=== PATIENT | female | born 1995 | race Caucasian/White ===

== ENCOUNTER 2016-08-06 21:32 | Emergency (ER) | payer OTHER ==
--- NOTE | 2016-08-06 23:39 | DIAGNOSTIC IMAGING REPORT ---
PROCEDURE: CTA THORAX WITH CONTRAST INDICATION: SOB, LONG CAR RIDE, TECHNIQUE: 68 ml of Isovue 370 was injected intravenously and axial images were obtained of the entire thorax with 3D sagittal and coronal MIP reconstructions. COMPARISON: None. FINDINGS: Allowing for suboptimal opacification of the peripheral vessels, no large central emboli are identified (although subtle peripheral emboli may be difficult to exclude). Lungs are clear. Heart and mediastinum are normal. Thorax is normal. IMPRESSION: 1. CT pulmonary arteriogram is partially limited due to suboptimal opacification of peripheral vessels. Allowing for this, no large central emboli are identified, although subtle peripheral emboli may be difficult to exclude. 2. Otherwise negative CT arteriogram. 3. Findings discussed Dr. Brayan Doe. All CT scans at this facility use dose modulation, iterative reconstruction, and/or weight-based dosing when appropriate to reduce radiation dose to as low as reasonably achievable.
--- NOTE | 2016-08-07 02:24 | ED CLINICAL REPORT ---
Clinical Report - Physicians/Mid Levels [facility] [address] [place] [address] 08/06/2016 21:33 Patient: JOANNE DUTTA Time Seen: 2225. Arrived- By private vehicle. Historian- patient. HISTORY OF PRESENT ILLNESS Chief Complaint: DYSPNEA. This started past day or two and is still present (staying the same). It was abrupt in onset and has been constant but is not gone now. The dyspnea is described as moderate and is worsened by exertion and is improved by rest. No cough, sputum production, chest pain or discomfort or calf pain. No foot swelling. (Reports she is approximately 18 weeks . No history of DVT PE or bleeding problems personally or in the family. reports no leg swelling, hemoptysis,recent trauma or surgery. Patient had recent car ride from [place].). Similar symptoms previously: None. Recent medical care: Not recently seen/assessed. REVIEW OF SYSTEMS No abdominal pain, diarrhea, black stools, bloody stools or headache. Currently . All systems otherwise negative, except as recorded above. PAST HISTORY See nurses notes. Medications: None. Allergies: No Known Drug Allergy. SOCIAL HISTORY Never smoker. No alcohol use or drug use. Recent travel. Is an out of state resident. ADDITIONAL NOTES The nursing notes have been reviewed. PHYSICAL EXAM Vital Signs: 08/06/2016 22:21 BP: 144/97. HR: 101. RR: 20. O2 saturation: 100%. Temp: 98.7 F. Blood pressure normal. Oxygen saturation normal. Appearance: Alert. No acute distress. Eyes: Pupils equal, round and reactive to light. Eyes normal inspection. ENT: Ears normal. Nose normal. Pharynx normal. Uvula midline. Neck: Normal inspection. No jugular venous distention. Neck supple. CVS: Normal heart rate and rhythm. Heart sounds normal. Pulses normal. Respiratory: No respiratory distress. Breath sounds normal. Abdomen: Soft and nontender. (Gravid uterus with the fundus palpated just below the umbilicus). Back: Normal inspection. Skin: Skin warm and dry. Normal skin color. No rash. Normal skin turgor. Extremities: Extremities exhibit normal ROM. No lower extremity edema. LABS, X-RAYS, AND EKG Chest CT: (PROCEDURE: CTA THORAX WITH CONTRAST INDICATION: SOB, LONG CAR RIDE, TECHNIQUE: 68 ml of Isovue 370 was injected intravenously and axial images were obtained of the entire thorax with 3D sagittal and coronal MIP reconstructions. COMPARISON: None. FINDINGS: Allowing for suboptimal opacification of the peripheral vessels, no large central emboli are identified (although subtle peripheral emboli may be difficult to exclude). Lungs are clear. Heart and mediastinum are normal. Thorax is normal. IMPRESSION: 1. CT pulmonary arteriogram is partially limited due to suboptimal opacification of peripheral vessels. Allowing for this, no large central emboli are identified, although subtle peripheral emboli may be difficult to exclude. 2. Otherwise negative CT arteriogram.). Chest CT performed with contrast. The study was independently viewed by me and interpreted by the radiologist. The study was discussed with the radiologist (via phone and pacs). Lower Extremity Sonography: Negative exam. No compression abnormality noted. No evidence of DVT bilaterally. The exam was performed by a environmental field technician. The study was independently viewed by me and interpreted by the radiologist. The study was discussed with the radiologist (via pacs). Laboratory Tests: Troponin-I: (ASHLEY: 08/07/2016 00:01) ( [facility] [place] 08/07/2016 02:21) Final results Test Result Flag Units (Reference) TROPONIN I <0.05 L ng/mL (0.00-1.5) TROPONIN REFERENCE RANGE:<0.1 NEGATIVE0.1-1.5 INDETERMINANT>1.5 POSITIVE UA-Culture if indicated: (ASHLEY: 08/06/2016 22:50) ( [facility] [place] 08/06/2016 23:10) Final results Test Result Flag Units (Reference) URINE COLOR YELLOW URINE APPEARANCE CLEAR URINE GLUCOSE NEGATIVE (NEGATIVE) URINE BILIRUBIN NEGATIVE (NEGATIVE) URINE KETONE NEGATIVE (NEGATIVE) URINE SPECIFIC GRAVITY >= 1.030 (1.010-1.030) URINE PH 6.0 (5.0-8.0) URINE PROTEIN NEGATIVE (NEGATIVE) URINE UROBILINOGEN 0.2 EU/dL (0.2-1.0) URINE NITRITE NEGATIVE (NEGATIVE) URINE BLOOD NEGATIVE (NEGATIVE) URINE LEUK ESTERASE NEGATIVE (NEGATIVE) URINE RBC NONE SEEN rbc/hpf (0-1) URINE WBC 15-25 wbc/hpf (0-1) URINE EPITHELIAL CELLS >15 EPI/hpf (0-5) URINE BACTERIA MODERATE (2+ TO 3+) (NONE SEEN) 2+ URINE COMMENT CULTURE INDICATED EPITHELIAL CONTAMINATION. NO CULTURE SETUP.Please call laboratory if culture wanted.1+ [id number] CALCIUM OXALATE CRYSTALS/HPFURINE CULTURES ARE SET-UP BASED ON THE FOLLOWING CRITERIA:POSITIVE NITRITEPOSITIVE LEUKOCYTE ESTERASEGREATER THAN 10 WHITE BLOOD CELLSMODERATE (2+) OR GREATER BACTERIA CBC w Diff: (ASHLEY: 08/06/2016 22:28) ( [facility] 08/06/2016 22:38) Final results Test Result Flag Units (Reference) WHITE BLOOD COUNT 11.3 K/uL (4.5-11.5) RED BLOOD COUNT 4.59 M/uL (4.00-5.20) HEMOGLOBIN 13.6 gm/dL (12.0-16.0) HEMATOCRIT 39.6 % (36.0-46.0) MEAN CELL VOLUME 86 fL (80-100) MEAN CORPUSCULAR HGB 30 pg (26-34) MEAN CORPUSCULAR HGB CONC 35 g/dL (31-37) RED CELL DISTRIBUTION WIDTH 12.3 % (11.6-14.8) PLATELET COUNT 204 K/uL (150-400) NEUTROPHIL % 70.7 % (50-75) LYMPH % 22.2 L % (25-40) MONO % 6.5 % (3-14) EOSINOPHIL % 0.4 % (0-4) BASOPHIL % 0.2 % (0-2) CMP: (ASHLEY: 08/06/2016 22:28) ( [facility] 08/06/2016 23:11) Final results Test Result Flag Units (Reference) GLUCOSE 103 mg/dL (70-110) BUN 7 mg/dL (7-18) CREATININE 0.6 mg/dL (0.6-1.3) Estimated GFR >60 mL/min Estimated GFR- >60 mL/min Note: Persistent reduction over 3 months in eGFR<60 mL/min/1.73 m2 defines CKD. Patients with eGFR values>=60 mL/min/1.73 m2 may also have CKD if evidence ofpersistent proteinuria. Additional information may be foundat www.kidney.org. SODIUM 139 mmol/L (136-145) POTASSIUM 3.5 mmol/L (3.5-5.1) CHLORIDE 105 mmol/L (98-107) CARBON DIOXIDE 23 mmol/L (21-32) CALCIUM 9.2 mg/dL (8.5-10.1) TOTAL PROTEIN 6.9 g/dL (6.4-8.2) ALBUMIN 3.1 L g/dL (3.3-5.0) BILIRUBIN, TOTAL 0.2 mg/dL (0.0-1.0) ALKALINE PHOSPHATASE 60 U/L (46-116) AST (SGOT) 12 L U/L (15-37) ALT (SGPT) 17 U/L (12-78) BETA HCG, QUANTITATIVE 9969 mIU/mL REFERENCE RANGE:Adult Males: <2 mIU/mLNon- Females: <6 mIU/mL Females:Approximate Approximate hCGGestational Age Range (mIU/mL) 0-1 week 0-501-2 weeks 40-3002-3 weeks 100-49920-8 weeks 500-23105-1 months 5,000-200,0002-3 months 10,000-100,0002nd trimester 3,000-50,0003rd trimester 1,000-50,000 . PROGRESS AND PROCEDURES Course of Care: the patient is a pleasant 20-year-old female who is and also with recent long car ride presenting for evaluation of shortness of breath. At this time differential diagnosis includes pneumonia, pulmonary embolism, and acute myocardial infarction. Had long discussion with patient in regards to risk factors for pulmonary embolism. Described the workup for pulmonary embolism and potential risks and benefits of the studies. Patient is agreeable to having the CT scan given the risks and benefits of the procedure. laboratory studies have also been ordered. Patient's workup was markable for the findings above. No acute abnormalities noted. CT scan does not show any signs of pulmonary embolism. Troponin is also noted to be negative. Urinalysis shows signs of urinary tract infection. Anaprox provided here in the emergency department. Otherwise patient's workup is negative. Because the patient's negative workup, do not feel patient needs be admitted to the hospital require further emergency department workup/evaluation. Patient states that she will establish care with an MARKETING SEGMENT MANAGER in [place]. Patient offered follow-up with MARKETING SEGMENT MANAGER here at our facility if she is unable to establish care with a MARKETING SEGMENT MANAGER in [place]. Had discussion with patient in regards to pulmonary embolism and acute myocardial infarction and incre Do not feel patient needs to be admitted to the hospital or require further emergency department workup/evaluation given her negative studies here today. I discussion patient in regards to her workup here as well as diagnosis, home care, follow-up, and return precautions. All questions have been answered. The patient expressed understanding of these instructions and was agreeable to them. Disposition: Discharged. Condition: good. CLINICAL IMPRESSION Acute dyspnea Acute urinary tract infection. placenta previa. INSTRUCTIONS Warnings: GENERAL WARNINGS: Return or contact your physician immediately if your condition worsens or changes unexpectedly, if not improving as expected, or if other problems arise. SPECIFICALLY, return if you develop chest pain, fever, productive cough, difficulty breathing, excessive fatigue, a fluttering sensation in the chest, fainting or leg swelling. Your Current Medications: CONTINUE TAKING THE FOLLOWING MEDICATIONS: None*. Prescription Medications: Keflex 500 mg: take 1 capsule orally every 8 hours for 5 days. No refill. Substitution is permissible. (Disp 15 caps) Follow-up: Return to the emergency department as needed. Follow up with your doctor in three days. Reason for referral: recheck today's concerns. Summary of care provided to patient via paper. Screening today revealed the patient's blood pressure to be in the normal range. The patient should follow up with a primary care provider for blood pressure management. Understanding of the discharge instructions verbalized by patient. Follow-up with: Joe Ho MD, Obstetrics/Gynecology, , [facility], [address] [place] [address] Follow up in three days. Reason for referral: recheck today's concerns if you can not see your MARKETING SEGMENT MANAGER. Summary of care provided to patient via paper. (Electronically signed by Brayan Doe Dr. 08/09/2016 4:10)
--- NOTE | 2016-08-07 02:24 | ED NURSING NOTES ---
Clinical Report - Nurses [facility] [address] [place] [address] 08/06/2016 21:33 Patient: JOANNE DUTTA TRIAGE Triage time 22:Aug 06 2016. Acuity: LEVEL 3. Chief Complaint: (dizzy, short of breath, llq pain, 18 wks ). 22:21 08/06/16. SEPSIS SCREEN: Sepsis Screen. Negative (no infection suspected/documented). PEGGY COMA SCORE: Desha Coma Scale: 15- eyes open spontaneously (4); best verbal response- oriented x 4 (5); best motor response- obeys commands (6). --22:29 Heena Velazquez R.N. 22:21 08/06/16. BP: 144/97. HR: 101. RR: 20. O2 saturation: 100%. Temp: 98.7 F. Pain level now 5/10. --22:29 Heena Velazquez R.N. Weight: 146.9 kg stated. Height/Length: 68 inches Per Patient. BMI: 49.3. --22:21 Heena Velazquez R.N. Medications None. --22:22 Heena Velazquez R.N. Medication/allergy information source: the patient. --22:29 Heena Velazquez R.N. Allergies No Known Drug Allergy. --22:22 Heena Velazquez R.N. History Arrived by private vehicle. Historian: patient. Accompanied by family. Onset. (1 weeks ago). ( Moved here 2 weeks ago from [place], drove in a car. no local pin setter. states many symptoms from blurred vision, to mucus in urine, facial pressure, shortness of breath. states had vaginal spotting 2 days ago. intermittent cramping, Left lower quadrant pain. no dysuria). She has had weakness. No fever, cough, difficulty breathing or skin rash. Denies muscle aches. Treatment TERRITORY ACCOUNT EXECUTIVE: None. PAST MEDICAL HX: 3. Para 2. Currently : LNMP: EDC: . G 3. P 2. SOCIAL HX: Former smoker. No alcohol use or drug use. No infectious disease exposure. ABUSE ASSESSMENT: No report of abuse. SELF HARM ASSESSMENT: A self harm assessment was performed. The patient answered "no" to the question "Have you recently felt down, depressed, or hopeless?", "Have you noticed less interest or pleasure in doing things?", "Do you have thoughts of harming or killing yourself?", "Are you here because you tried to hurt yourself?", "Have you ever tried to hurt yourself before today?", "Have you recently had thoughts about harming or killing others?" and "Do you have any dangerous items in your possession?". NUTRITIONAL RISK ASSESSMENT: The nutritional risk assessment revealed no deficiencies. FUNCTIONAL ASSESSMENT: Functional assessment: no impairments noted. LEARNING NEEDS ASSESSMENT: The learning needs assessment revealed no barriers. SKIN INTEGRITY ASSESSMENT: Skin integrity risk assessment completed. No skin integrity risk identified. --22:29 Heena Velazquez R.N. ADDITIONAL SURGERIES: C section. Tonsillectomy. --22:24 Heena Velazquez R.N. Interventions ID band on patient. --22:29 Heena Velazquez R.N. PHYSICAL ASSESSMENT 22:30 08/06/16. Ambulatory to room. ( Negative Homans, no lower extremity edema). GENERAL / NEURO / PSYCH: Alert. Oriented X 4. HEENT: Pupils equal, round and reactive to light. No facial asymmetry noted. Mucous membranes are pink. RESPIRATORY: Respirations not labored. Breath sounds within normal limits. CVS: Normal sinus rhythm noted. Capillary refill less than 2 seconds. Pulses within normal limits. GI / : ( morbid obesity). Abdomen soft. SKIN: Skin intact. Skin is warm and dry. Normal skin turgor. --22:30 Heena Velazquez R.N. NURSING PROGRESS NOTES 22:29 08/06/16. The initial plan of care for this patient includes an assessment with efforts to address the presence of pain. This plan of care was discussed with the patient. school lunch monitor, pulse oximeter and NIBP monitor placed on patient; threat monitoring analyst- Lead II; monitor alarms on. Patient gowned. Reassurance given. Patient identifiers checked. Call light placed in reach. Side rails up x 1. Bed placed in lowest position. Brakes of bed on. Patient ready for evaluation. --22:29 Heena Velazquez R.N. 22:30 08/06/2016 Site #1 started via IV in the right antecubital space with an 20g angiocath, with aseptic technique and good blood return; one attempt. Blood drawn: rainbow set. Labeled in the presence of the patient and sent to the lab. Saline lock flushed with 10 mL saline. --22:36 Heena Velazquez R.N. EKG time: (33 Aug 06 2016). --22:41 Heena Velazquez R.N. 22:51 08/06/16. Patient ID band checked for patient name and birthdate: patient confirmed. Instructions provided to collect clean catch urine and patient verbalized understanding. Clean catch urine collected with return of yellow-colored clear urine; sample sent to lab for urinalysis and HCG. Specimen labeled in the presence of the patient. --22:51 Heena Velazquez R.NHong 23:37 08/06/16. Cardiac rhythm: normal sinus rhythm. ( CT completed). --23:37 Heena Velazquez R.NHong 23:37 08/06/16. BP: 119/40. HR: 98. RR: 18. O2 saturation: 100%. Pain level now 2/10. --23:37 Heena Velazquez R.N. 23:37 08/06/16. ( CT completed. US at bedside). --23:37 Heena Velazquez R.N. 00:32 08/07/16. ( Ultrasound still in room. Family at bedside). --00:32 Heena Velazquez R.N. 00:33 08/07/16. Cardiac rhythm: normal sinus rhythm. --00:33 Heena Velazquez R.NHong 00:33 08/07/16. HR: 91. RR: 18. O2 saturation: 100%. --00:33 Heena Velazquez R.N. 01:00 08/07/16. Patient waiting for disposition. --01:00 Heena Velazquez R.N. DISPOSITION / DISCHARGE 02:32 08/07/2016 Site #1 removed upon discharge. Catheter intact. Pressure dressing applied. --02:36 Heena Velazquez R.N. 02:37 08/07/16. Condition at departure: improved and stable. The goals identified in the patient's plan of care were met. No learning barriers present. Reviewed medication(s) side effects, precautions, dosing and course information. Prescription(s) given to the patient. Reviewed referral to an banking consultant for followup. Summary of care provided to patient via paper. Patient verbalized understanding. Written instructions provided in Bulgarian. The patient was discharged home and accompanied by marine architect. She left the Emergency Department ambulatory and via private vehicle. Drilling Supervisor driving. --02:37 Heena Velazquez R.N. 02:37 08/07/16. BP: 132/82. HR: 98. RR: 18. O2 saturation: 100%. Temp: 98.6 F. Pain level now 10. --02:37 Heena Velazquez R.N. Departure time: 02:37 Aug 07 2016. --02:37 Heena Velazquez R.N. Locked/Released at 08/07/2016 2:37 by Heena Velazquez R.N.
--- NOTE | 2016-08-07 02:24 | ED ORDER SUMMARY ---
..... Patient: JOANNE DUTTA OrderSheet [facility] VisitID: [id number] [place] [address] 20y, F Registration Date/Time: 08/06/2016 ORDER SHEET Weight: 146.9 kg (stated) Allergies: No Known Drug Allergy GENERAL ORDERS: Punching Machine Operator (Continuous) (dizzy) (22:23 08/06/2016 Tami Jiménez) (Ack 22:34 AMcQuoid ER Tech1) (22:34 Pattie) CBC w Diff Urgent (22:25 08/06/2016 Tami Jiménez) (Ack 22:34 AMcQuoid ER Tech1) (22:39 EInderbitzen R.N.) CMP Urgent (22:08/06/2016 Tami Jiménez) (Ack 22:34 AMcQuoid ER Tech1) (22:39 EInderbitzen R.N.) Serum Quantitative Urgent (22:25 08/06/2016 Tami Jiménez) (Ack 22:34 AMcQuoid ER Tech1) (22:39 EInderbitzen R.N.) UA-Culture if indicated Urgent (22:25 08/06/2016 Tami Jiménez) (Ack 22:34 AMcQuoid ER Tech1) (0:53 HSoule) EKG - ER Stat (22:08/06/2016 Tami Jiménez) (Ack 22:34 AMcQuoid ER Tech1) (22:34 Pattie) Pulse oximeter (22:25 08/06/2016 Tami Jiménez) (Ack 22:34 AMcQuoid ER Tech1) (22:34 Pattie) Heart Tones (22:25 08/06/2016 Tami Jiménez) (Ack 22:34 AMcQuoid ER Tech1) (Cancelled: Duplicate Order22:41 Tami Jiménez) US OB 2nd Trimester (several months ago) Urgent (22:40 08/06/2016 Tami Jiménez) (Ack 22:44 AMcQuoid ER Tech1) (0:08 GUnger) CTA Thorax w Cont (No) (N/A) Urgent (22:41 08/06/2016 Tami Jiménez) (Ack 22:44 AMcQuoid ER Tech1) (23:39 EIkae R.N.) US Venous Bilat Urgent (23:39 08/06/2016 Tami Jiménez) (Ack 23:56 AMcQuoid ER Tech1) (0:33 GUnger) Troponin-I Urgent (02:02 08/07/2016 Tami Jiménez) (2:04 AMcQuoid ER Tech1) MEDICATION ORDERS: Keflex PO 500 mg (NOW) (02:01 08/07/2016 Tami Jiménez) (Ack 2:13 HSoule) IV FLUIDS: IV Saline Lock (22:25 08/06/2016 Tami Jiménez) (22:39 Albin R.N.) ORDER SHEET NOTES: [Electronically signed by Heena Velazquez R.N. (02:37 08/07/2016)] [Electronically signed by Brayan Doe Dr. (04:10 08/09/2016)] [Electronically locked/signed by Heena Velazquez R.N. (02:37 08/07/2016)]
--- NOTE | 2016-08-07 02:24 | ED ORDER SUMMARY ---
..... Patient: JOANNE DUTTA OrderSheet [facility] VisitID: [id number] [place] [address] 20y, F Registration Date/Time: 08/06/2016 ORDER SHEET Weight: 146.9 kg (stated) Allergies: No Known Drug Allergy GENERAL ORDERS: Senior Pharmacy Technician (Continuous) (dizzy) (22:23 08/06/2016 Tami Jiménez) (Ack 22:34 AMcQuoid ER Tech1) (22:34 Pattie) CBC w Diff Urgent (22:25 08/06/2016 Tami Jiménez) (Ack 22:34 AMcQuoid ER Tech1) (22:39 EInderbitzen R.N.) CMP Urgent (22:08/06/2016 Tami Jiménez) (Ack 22:34 AMcQuoid ER Tech1) (22:39 EInderbitzen R.N.) Serum Quantitative Urgent (22:25 08/06/2016 Tami Jiménez) (Ack 22:34 AMcQuoid ER Tech1) (22:39 EInderbitzen R.N.) UA-Culture if indicated Urgent (22:25 08/06/2016 Tami Jiménez) (Ack 22:34 AMcQuoid ER Tech1) (0:53 HSoule) EKG - ER Stat (22:08/06/2016 Tami Jiménez) (Ack 22:34 AMcQuoid ER Tech1) (22:34 Pattie) Pulse oximeter (22:25 08/06/2016 Tami Jiménez) (Ack 22:34 AMcQuoid ER Tech1) (22:34 Pattie) Heart Tones (22:25 08/06/2016 Tami Jiménez) (Ack 22:34 AMcQuoid ER Tech1) (Cancelled: Duplicate Order22:41 Tami Jiménez) US OB 2nd Trimester (several months ago) Urgent (22:40 08/06/2016 Tami Jiménez) (Ack 22:44 AMcQuoid ER Tech1) (0:08 GUnger) CTA Thorax w Cont (No) (N/A) Urgent (22:41 08/06/2016 Tami iJménez) (Ack 22:44 AMcQuoid ER Tech1) (23:39 EIkae R.N.) US Venous Bilat Urgent (23:39 08/06/2016 Tami Jiménez) (Ack 23:56 AMcQuoid ER Tech1) (0:33 GUnger) Troponin-I Urgent (02:02 08/07/2016 Tami Jiménez) (2:04 AMcQuoid ER Tech1) MEDICATION ORDERS: Keflex PO 500 mg (NOW) (02:01 08/07/2016 Tami Jiménez) (Ack 2:13 HSoule) IV FLUIDS: IV Saline Lock (22:25 08/06/2016 Tami Jiménez) (22:39 Albin R.N.) ORDER SHEET NOTES: [Electronically signed by Heena Velazquez R.N. (02:37 08/07/2016)] [Electronically signed by Brayan Doe Dr. (04:10 08/09/2016)] [Electronically locked/signed by Heena Velazquez R.N. (02:37 08/07/2016)]
--- NOTE | 2016-08-07 02:24 | ED NURSING NOTES ---
Clinical Report - Nurses [facility] [address] [place] [address] 08/06/2016 21:33 Patient: JOANNE DUTTA TRIAGE Triage time 22:Aug 06 2016. Acuity: LEVEL 3. Chief Complaint: (dizzy, short of breath, llq pain, 18 wks ). 22:21 08/06/16. SEPSIS SCREEN: Sepsis Screen. Negative (no infection suspected/documented). PEGGY COMA SCORE: [place] Coma Scale: 15- eyes open spontaneously (4); best verbal response- oriented x 4 (5); best motor response- obeys commands (6). --22:29 Heena Velazquez R.N. 22:21 08/06/16. BP: 144/97. HR: 101. RR: 20. O2 saturation: 100%. Temp: 98.7 F. Pain level now 5/10. --22:29 Heena Velazquez R.N. Weight: 146.9 kg stated. Height/Length: 68 inches Per Patient. BMI: 49.3. --22:21 Heena Velazquez R.N. Medications None. --22:22 Heena Velazquez R.N. Medication/allergy information source: the patient. --22:29 Heena Velazquez R.N. Allergies No Known Drug Allergy. --22:22 Heena Velazquez R.N. History Arrived by private vehicle. Historian: patient. Accompanied by family. Onset. (1 weeks ago). ( Moved here 2 weeks ago from [place], drove in a car. 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 states many symptoms from blurred vision, to mucus in urine, facial pressure, shortness of breath. states had vaginal spotting 2 days ago. intermittent cramping, Left lower quadrant pain. no dysuria). She has had weakness. No fever, cough, difficulty breathing or skin rash. Denies muscle aches. Treatment GUIDANCE SERVICES COORDINATOR: None. PAST MEDICAL HX: 3. Para 2. Currently : LNMP: EDC: . G 3. P 2. SOCIAL HX: Former smoker. No alcohol use or drug use. No infectious disease exposure. ABUSE ASSESSMENT: No report of abuse. SELF HARM ASSESSMENT: A self harm assessment was performed. The patient answered "no" to the question "Have you recently felt down, depressed, or hopeless?", "Have you noticed less interest or pleasure in doing things?", "Do you have thoughts of harming or killing yourself?", "Are you here because you tried to hurt yourself?", "Have you ever tried to hurt yourself before today?", "Have you recently had thoughts about harming or killing others?" and "Do you have any dangerous items in your possession?". NUTRITIONAL RISK ASSESSMENT: The nutritional risk assessment revealed no deficiencies. FUNCTIONAL ASSESSMENT: Functional assessment: no impairments noted. LEARNING NEEDS ASSESSMENT: The learning needs assessment revealed no barriers. SKIN INTEGRITY ASSESSMENT: Skin integrity risk assessment completed. No skin integrity risk identified. --22:29 Heena Velazquez R.N. ADDITIONAL SURGERIES: C section. Tonsillectomy. --22:24 Heena Velazquez R.N. Interventions ID band on patient. --22:29 Heena Velazquez R.N. PHYSICAL ASSESSMENT 22:30 08/06/16. Ambulatory to room. ( Negative Homans, no lower extremity edema). GENERAL / NEURO / PSYCH: Alert. Oriented X 4. HEENT: Pupils equal, round and reactive to light. No facial asymmetry noted. Mucous membranes are pink. RESPIRATORY: Respirations not labored. Breath sounds within normal limits. CVS: Normal sinus rhythm noted. Capillary refill less than 2 seconds. Pulses within normal limits. GI / : ( morbid obesity). Abdomen soft. SKIN: Skin intact. Skin is warm and dry. Normal skin turgor. --22:30 Heena Velazquez R.N. NURSING PROGRESS NOTES 22:29 08/06/16. The initial plan of care for this patient includes an assessment with efforts to address the presence of pain. This plan of care was discussed with the patient. general laborer, pulse oximeter and NIBP monitor placed on patient; managed services sales consultant- Lead II; monitor alarms on. Patient gowned. Reassurance given. Patient identifiers checked. Call light placed in reach. Side rails up x 1. Bed placed in lowest position. Brakes of bed on. Patient ready for evaluation. --22:29 Heena Velazquez R.N. 22:30 08/06/2016 Site #1 started via IV in the right antecubital space with an 20g angiocath, with aseptic technique and good blood return; one attempt. Blood drawn: rainbow set. Labeled in the presence of the patient and sent to the lab. Saline lock flushed with 10 mL saline. --22:36 Heena Velazquez R.N. EKG time: (33 Aug 06 2016). --22:41 Heena Velazquez R.N. 22:51 08/06/16. Patient ID band checked for patient name and birthdate: patient confirmed. Instructions provided to collect clean catch urine and patient verbalized understanding. Clean catch urine collected with return of yellow-colored clear urine; sample sent to lab for urinalysis and HCG. Specimen labeled in the presence of the patient. --22:51 Heena Velazquez R.NHong 23:37 08/06/16. Cardiac rhythm: normal sinus rhythm. ( CT completed). --23:37 Heena Velazquez R.NHong 23:37 08/06/16. BP: 119/40. HR: 98. RR: 18. O2 saturation: 100%. Pain level now 2/10. --23:37 Heena Velazquez R.N. 23:37 08/06/16. ( CT completed. US at bedside). --23:37 Heena Velazquez R.N. 00:32 08/07/16. ( Ultrasound still in room. Family at bedside). --00:32 Heena Velazquez R.N. 00:33 08/07/16. Cardiac rhythm: normal sinus rhythm. --00:33 Heena Velazquez R.NHong 00:33 08/07/16. HR: 91. RR: 18. O2 saturation: 100%. --00:33 Heena Velazquez R.N. 01:00 08/07/16. Patient waiting for disposition. --01:00 Heena Velazquez R.N. DISPOSITION / DISCHARGE 02:32 08/07/2016 Site #1 removed upon discharge. Catheter intact. Pressure dressing applied. --02:36 Heena Velazquez R.N. 02:37 08/07/16. Condition at departure: improved and stable. The goals identified in the patient's plan of care were met. No learning barriers present. Reviewed medication(s) side effects, precautions, dosing and course information. Prescription(s) given to the patient. Reviewed referral to an treasury associate for followup. Summary of care provided to patient via paper. Patient verbalized understanding. Written instructions provided in Japanese. The patient was discharged home and accompanied by licensed optical dispenser. She left the Emergency Department ambulatory and via private vehicle. Nut Sorter Operator driving. --02:37 Heena Velazquez R.N. 02:37 08/07/16. BP: 132/82. HR: 98. RR: 18. O2 saturation: 100%. Temp: 98.6 F. Pain level now 10. --02:37 Heena Velazquez R.N. Departure time: 02:37 Aug 07 2016. --02:37 Heena Velazquez R.N. Locked/Released at 08/07/2016 2:37 by Heena Velazquez R.N.
--- NOTE | 2016-08-07 02:24 | ED CLINICAL REPORT ---
Clinical Report - Physicians/Mid Levels [facility] [address] [place] [address] 08/06/2016 21:33 Patient: JOANNE DUTTA Time Seen: 2225. Arrived- By private vehicle. Historian- patient. HISTORY OF PRESENT ILLNESS Chief Complaint: DYSPNEA. This started past day or two and is still present (staying the same). It was abrupt in onset and has been constant but is not gone now. The dyspnea is described as moderate and is worsened by exertion and is improved by rest. No cough, sputum production, chest pain or discomfort or calf pain. No foot swelling. (Reports she is approximately 18 weeks . No history of DVT PE or bleeding problems personally or in the family. reports no leg swelling, hemoptysis,recent trauma or surgery. Patient had recent car ride from [place].). Similar symptoms previously: None. Recent medical care: Not recently seen/assessed. REVIEW OF SYSTEMS No abdominal pain, diarrhea, black stools, bloody stools or headache. Currently . All systems otherwise negative, except as recorded above. PAST HISTORY See nurses notes. Medications: None. Allergies: No Known Drug Allergy. SOCIAL HISTORY Never smoker. No alcohol use or drug use. Recent travel. Is an out of state resident. ADDITIONAL NOTES The nursing notes have been reviewed. PHYSICAL EXAM Vital Signs: 08/06/2016 22:21 BP: 144/97. HR: 101. RR: 20. O2 saturation: 100%. Temp: 98.7 F. Blood pressure normal. Oxygen saturation normal. Appearance: Alert. No acute distress. Eyes: Pupils equal, round and reactive to light. Eyes normal inspection. ENT: Ears normal. Nose normal. Pharynx normal. Uvula midline. Neck: Normal inspection. No jugular venous distention. Neck supple. CVS: Normal heart rate and rhythm. Heart sounds normal. Pulses normal. Respiratory: No respiratory distress. Breath sounds normal. Abdomen: Soft and nontender. (Gravid uterus with the fundus palpated just below the umbilicus). Back: Normal inspection. Skin: Skin warm and dry. Normal skin color. No rash. Normal skin turgor. Extremities: Extremities exhibit normal ROM. No lower extremity edema. LABS, X-RAYS, AND EKG Chest CT: (PROCEDURE: CTA THORAX WITH CONTRAST INDICATION: SOB, LONG CAR RIDE, TECHNIQUE: 68 ml of Isovue 370 was injected intravenously and axial images were obtained of the entire thorax with 3D sagittal and coronal MIP reconstructions. COMPARISON: None. FINDINGS: Allowing for suboptimal opacification of the peripheral vessels, no large central emboli are identified (although subtle peripheral emboli may be difficult to exclude). Lungs are clear. Heart and mediastinum are normal. Thorax is normal. IMPRESSION: 1. CT pulmonary arteriogram is partially limited due to suboptimal opacification of peripheral vessels. Allowing for this, no large central emboli are identified, although subtle peripheral emboli may be difficult to exclude. 2. Otherwise negative CT arteriogram.). Chest CT performed with contrast. The study was independently viewed by me and interpreted by the radiologist. The study was discussed with the radiologist (via phone and pacs). Lower Extremity Sonography: Negative exam. No compression abnormality noted. No evidence of DVT bilaterally. The exam was performed by a locate technician. The study was independently viewed by me and interpreted by the radiologist. The study was discussed with the radiologist (via pacs). Laboratory Tests: Troponin-I: (ASHLEY: 08/07/2016 00:01) ( [facility] 08/07/2016 02:21) Final results Test Result Flag Units (Reference) TROPONIN I <0.05 L ng/mL (0.00-1.5) TROPONIN REFERENCE RANGE:<0.1 NEGATIVE0.1-1.5 INDETERMINANT>1.5 POSITIVE UA-Culture if indicated: (ASHLEY: 08/06/2016 22:50) ( [facility] 23:10) Final results Test Result Flag Units (Reference) URINE COLOR YELLOW URINE APPEARANCE CLEAR URINE GLUCOSE NEGATIVE (NEGATIVE) URINE BILIRUBIN NEGATIVE (NEGATIVE) URINE KETONE NEGATIVE (NEGATIVE) URINE SPECIFIC GRAVITY >= 1.030 (1.010-1.030) URINE PH 6.0 (5.0-8.0) URINE PROTEIN NEGATIVE (NEGATIVE) URINE UROBILINOGEN 0.2 EU/dL (0.2-1.0) URINE NITRITE NEGATIVE (NEGATIVE) URINE BLOOD NEGATIVE (NEGATIVE) URINE LEUK ESTERASE NEGATIVE (NEGATIVE) URINE RBC NONE SEEN rbc/hpf (0-1) URINE WBC 15-25 wbc/hpf (0-1) URINE EPITHELIAL CELLS >15 EPI/hpf (0-5) URINE BACTERIA MODERATE (2+ TO 3+) (NONE SEEN) 2+ URINE COMMENT CULTURE INDICATED EPITHELIAL CONTAMINATION. NO CULTURE SETUP.Please call laboratory if culture wanted.1+ [id number] CALCIUM OXALATE CRYSTALS/HPFURINE CULTURES ARE SET-UP BASED ON THE FOLLOWING CRITERIA:POSITIVE NITRITEPOSITIVE LEUKOCYTE ESTERASEGREATER THAN 10 WHITE BLOOD CELLSMODERATE (2+) OR GREATER BACTERIA CBC w Diff: (ASHLEY: 08/06/2016 22:28) ( [facility] 22:38) Final results Test Result Flag Units (Reference) WHITE BLOOD COUNT 11.3 K/uL (4.5-11.5) RED BLOOD COUNT 4.59 M/uL (4.00-5.20) HEMOGLOBIN 13.6 gm/dL (12.0-16.0) HEMATOCRIT 39.6 % (36.0-46.0) MEAN CELL VOLUME 86 fL (80-100) MEAN CORPUSCULAR HGB 30 pg (26-34) MEAN CORPUSCULAR HGB CONC 35 g/dL (31-37) RED CELL DISTRIBUTION WIDTH 12.3 % (11.6-14.8) PLATELET COUNT 204 K/uL (150-400) NEUTROPHIL % 70.7 % (50-75) LYMPH % 22.2 L % (25-40) MONO % 6.5 % (3-14) EOSINOPHIL % 0.4 % (0-4) BASOPHIL % 0.2 % (0-2) CMP: (ASHLEY: 08/06/2016 22:28) ( [facility] 23:11) Final results Test Result Flag Units (Reference) GLUCOSE 103 mg/dL (70-110) BUN 7 mg/dL (7-18) CREATININE 0.6 mg/dL (0.6-1.3) Estimated GFR >60 mL/min Estimated GFR- >60 mL/min Note: Persistent reduction over 3 months in eGFR<60 mL/min/1.73 m2 defines CKD. Patients with eGFR values>=60 mL/min/1.73 m2 may also have CKD if evidence ofpersistent proteinuria. Additional information may be foundat [email or web address].org. SODIUM 139 mmol/L (136-145) POTASSIUM 3.5 mmol/L (3.5-5.1) CHLORIDE 105 mmol/L (98-107) CARBON DIOXIDE 23 mmol/L (21-32) CALCIUM 9.2 mg/dL (8.5-10.1) TOTAL PROTEIN 6.9 g/dL (6.4-8.2) ALBUMIN 3.1 L g/dL (3.3-5.0) BILIRUBIN, TOTAL 0.2 mg/dL (0.0-1.0) ALKALINE PHOSPHATASE 60 U/L (46-116) AST (SGOT) 12 L U/L (15-37) ALT (SGPT) 17 U/L (12-78) BETA HCG, QUANTITATIVE 9969 mIU/mL REFERENCE RANGE:Adult Males: <2 mIU/mLNon- Females: <6 mIU/mL Females:Approximate Approximate hCGGestational Age Range (mIU/mL) 0-1 week 0-501-2 weeks 40-3002-3 weeks 100-98859-4 weeks 500-37449-3 months 5,000-200,0002-3 months 10,000-100,0002nd trimester 3,000-50,0003rd trimester 1,000-50,000 . PROGRESS AND PROCEDURES Course of Care: the patient is a pleasant 20-year-old female who is and also with recent long car ride presenting for evaluation of shortness of breath. At this time differential diagnosis includes pneumonia, pulmonary embolism, and acute myocardial infarction. Had long discussion with patient in regards to risk factors for pulmonary embolism. Described the workup for pulmonary embolism and potential risks and benefits of the studies. Patient is agreeable to having the CT scan given the risks and benefits of the procedure. laboratory studies have also been ordered. Patient's workup was markable for the findings above. No acute abnormalities noted. CT scan does not show any signs of pulmonary embolism. Troponin is also noted to be negative. Urinalysis shows signs of urinary tract infection. Anaprox provided here in the emergency department. Otherwise patient's workup is negative. Because the patient's negative workup, do not feel patient needs be admitted to the hospital require further emergency department workup/evaluation. Patient states that she will establish care with an CHIEF ENGINEER'S HELPER in [place] at [place]. Patient offered follow-up with CHIEF ENGINEER'S HELPER here at our facility if she is unable to establish care with a CHIEF ENGINEER'S HELPER in [place]. Had discussion with patient in regards to pulmonary embolism and acute myocardial infarction and incre Do not feel patient needs to be admitted to the hospital or require further emergency department workup/evaluation given her negative studies here today. I discussion patient in regards to her workup here as well as diagnosis, home care, follow-up, and return precautions. All questions have been answered. The patient expressed understanding of these instructions and was agreeable to them. Disposition: Discharged. Condition: good. CLINICAL IMPRESSION Acute dyspnea Acute urinary tract infection. placenta previa. INSTRUCTIONS Warnings: GENERAL WARNINGS: Return or contact your physician immediately if your condition worsens or changes unexpectedly, if not improving as expected, or if other problems arise. SPECIFICALLY, return if you develop chest pain, fever, productive cough, difficulty breathing, excessive fatigue, a fluttering sensation in the chest, fainting or leg swelling. Your Current Medications: CONTINUE TAKING THE FOLLOWING MEDICATIONS: None*. Prescription Medications: Keflex 500 mg: take 1 capsule orally every 8 hours for 5 days. No refill. Substitution is permissible. (Disp 15 caps) Follow-up: Return to the emergency department as needed. Follow up with your doctor in three days. Reason for referral: recheck today's concerns. Summary of care provided to patient via paper. Screening today revealed the patient's blood pressure to be in the normal range. The patient should follow up with a primary care provider for blood pressure management. Understanding of the discharge instructions verbalized by patient. Follow-up with: Joe Ho MD, Obstetrics/Gynecology, , [facility], [address] [place] [address] Follow up in three days. Reason for referral: recheck today's concerns if you can not see your CHIEF ENGINEER'S HELPER. Summary of care provided to patient via paper. (Electronically signed by Brayan Doe Dr. 08/09/2016 4:10)
--- NOTE | 2016-08-07 04:08 | DIAGNOSTIC IMAGING REPORT ---
PROCEDURE: US VENOUS - BILATERAL EXT INDICATION: Shortness of breath. . Recent prolonged travel. Assess for DVT. TECHNIQUE: Color Doppler duplex imaging of the deep and superficial venous system without and with compression. COMPARISON: None. FINDINGS: RIGHT LOWER EXTREMITY: Deep and superficial venous system of the right lower extremity is within normal limits. There is no evidence of deep vein thrombosis or superficial thrombophlebitis. LEFT LOWER EXTREMITY: Deep and superficial venous system of the left lower extremity is within normal limits. There is no evidence of deep vein thrombosis or superficial thrombophlebitis. IMPRESSION: 1. Negative venous ultrasound of the bilateral lower extremities.
--- NOTE | 2016-08-09 04:10 | ED DISCHARGE INSTRUCTIONS ---
Patient: JOANNE DUTTA General Instructions [facility] VisitID: [id number] [place] [address] 20y, F Registration Date/Time: 08/06/2016 Acute dyspnea Acute urinary tract infection. placenta previa. INSTRUCTIONS Warnings: GENERAL WARNINGS: Return or contact your physician immediately if your condition worsens or changes unexpectedly, if not improving as expected, or if other problems arise. SPECIFICALLY, return if you develop chest pain, fever, productive cough, difficulty breathing, excessive fatigue, a fluttering sensation in the chest, fainting or leg swelling. Your Current Medications: CONTINUE TAKING THE FOLLOWING MEDICATIONS: None*. Prescription Medications: Keflex 500 mg: take 1 capsule orally every 8 hours for 5 days. No refill. Substitution is permissible. (Disp 15 caps) Follow-up: Return to the emergency department as needed. Follow up with your doctor in three days. Reason for referral: recheck today's concerns. Summary of care provided to patient via paper. Screening today revealed the patient's blood pressure to be in the normal range. The patient should follow up with a primary care provider for blood pressure management. Understanding of the discharge instructions verbalized by patient. Follow-up with: Joe Ho MD, Obstetrics/Gynecology, , [facility], [address] [place] [address] Follow up in three days. 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 Summary of care provided to patient via paper. ADDITIONAL INFORMATION Dyspnea (Shortness Of Breath) Shortness of Breath (also known as "Dyspnea") is the sense that you can't catch your breath or can't get enough air. Dyspnea can be caused by many different conditions such as: Acute asthma attack Worsening of emphysema (also called "COPD") -- a lung diseasethat is caused by smoking A mucus plug blocks a large air passage in the lung -- this can occur with emphysema or chronic bronchitis Congestive Heart Failure ("CHF") -- when a weak heart muscle allows excess fluid to collect inthe lungs Panic attacks, anxiety -- fear can cause rapid breathing ("hyperventilation") Pneumonia -- infection in the lung tissue Exposure to toxic fumes or smoke Pulmonary embolus (blood clot to the lung) Based on your visit today, the exact cause of your shortness of breath is not certain. Your tests do not show any of the serious causes of dyspnea. Sometimes, further testing is needed to find out if a serious problem exists. Therefore, it is important for you to watch for any new symptoms or worsening of your condition and follow up with your doctor as directed. Home Care: When your symptoms are better, resume your usual activities. If you smoke, you need to stop. Join a stop-smoking program or ask your doctor for help. Follow Up with your doctor or as advised by our staff. Get Prompt Medical Attention if any of the following occur: Increasing shortness of breath or wheezing Redness, pain or swelling in one leg Swelling in both legs or ankles Unexpected weight gain Chest, arm, shoulder, neck or upper back pain Dizziness, weakness or fainting Palpitations (the sense that your heart is fluttering, beating fast or hard) Fever of 100.4F (38C) or higher, or as directed by your healthcare provider Cough with dark colored or bloody sputum (mucus) Bladder Infection,Female (Adult) A bladder infection ("cystitis" or "UTI") usually causes a constant urge to urinate and a burning when passing urine. Urine may be cloudy, smelly or dark. There may be pain in the lower abdomen. A bladder infection occurs when bacteria from the vaginal area enter the bladder opening (urethra). This can occur from sexual intercourse, wearing tight clothing, dehydration and other factors. Home Care: Drink lots of fluids (at least 6-8 glasses a day, unless you must restrict fluids for other medical reasons). This will force the medicine into your urinary system and flush the bacteria out of your body. Avoid sexual intercourse until your symptoms are gone. Avoid caffeine, alcohol and spicy foods. These can irritate the bladder. A bladder infection is treated with antibiotics. You may also be given Pyridium (generic = phenazopyridine) to reduce the burning sensation. This medicine will cause your urine to become a bright orange color. The orange urine may stain clothing. You may wear a pad or panty-liner to protect clothing. Preventing Future Infections: Always wipe from front to back after a bowel movement. Keep the genital area clean and dry. Drink plenty of fluids each day to avoid dehydration. Both sexual partners should wash before intercourse. Urinate right after intercourse to flush out the bladder. Wear cotton underwear and cotton-lined panty hose; avoid tight-fitting pants. If you are on control pills and are having frequent bladder infections, discuss with your doctor. Follow Up: Return to this facility or see your doctor if ALL symptoms are not gone after three days of treatment. Get Prompt Medical Attention if any of the following occur: Fever of 100.4F (38C) or higher, or as directed by your healthcare provider No improvement by the third day of treatment Increasing back or abdominal pain Repeated vomiting; unable to keep medicine down Weakness, dizziness or fainting Vaginal discharge Pain, redness or swelling in the labia (outer vaginal area) Cephalexin Monohydrate Oral tablet What is this medicine? CEPHALEXIN (sef a NICK in) is a cephalosporin antibiotic. It is used to treat certain kinds of bacterial infections It will not work for colds, flu, or other viral infections. How should I use this medicine? Take this medicine by mouth with a full glass of water. Follow the directions on the prescription label. This medicine can be taken with or without food. Take your medicine at regular intervals. Do not take your medicine more often than directed. Take all of your medicine as directed even if you think you are better. Do not skip doses or stop your medicine early. Talk to your home care rn regarding the use of this medicine in children. While this drug may be prescribed for selected conditions, precautions do apply. What side effects may I notice from receiving this medicine? Side effects that you should report to your doctor or health manager intensive care unit as soon as possible: allergic reactions like skin rash, itching or hives, swelling of the face, lips, or tongue breathing problems pain or trouble passing urine redness, blistering, peeling or loosening of the skin, including inside the mouth severe or watery diarrhea unusually weak or tired yellowing of the eyes, skin Side effects that usually do not require medical attention (report to your doctor or health manager intensive care unit if they continue or are bothersome): gas or heartburn genital or anal irritation headache joint or muscle pain nausea, vomiting What may interact with this medicine? probenecid some other antibiotics What if I miss a dose? If you miss a dose, take it as soon as you can. If it is almost time for your next dose, take only that dose. Do not take double or extra doses. There should be at least 4 to 6 hours between doses. Where should I keep my medicine? Keep out of the reach of children. Store at room temperature between 59 and 86 degrees F (15 and 30 degrees C). Throw away any unused medicine after the expiration date. What should I tell my health care provider before I take this medicine? They need to know if you have any of these conditions: kidney disease stomach or intestine problems, especially colitis an unusual or allergic reaction to cephalexin, other cephalosporins, penicillins, other antibiotics, medicines, foods, dyes or preservatives or trying to get breast-feeding What should I watch for while using this medicine? Tell your doctor or health manager intensive care unit if your symptoms do not begin to improve in a few days. Do not treat diarrhea with over the counter products. Contact your doctor if you have diarrhea that lasts more than 2 days or if it is severe and watery. If you have diabetes, you may get a false-positive result for sugar in your urine. Check with your doctor or health manager intensive care unit. You have been given the following additional information: Dyspnea Bladder Infection, Female (Adult) Cephalexin Monohydrate Oral tablet (Electronically signed by Brayan Doe Dr. 08/09/2016 4:10)
--- NOTE | 2016-08-09 04:10 | ED DISCHARGE INSTRUCTIONS ---
Patient: JOANNE DUTTA General Instructions [facility] VisitID: [id number] [place] [address] 20y, F Registration Date/Time: 08/06/2016 Acute dyspnea Acute urinary tract infection. placenta previa. INSTRUCTIONS Warnings: GENERAL WARNINGS: Return or contact your physician immediately if your condition worsens or changes unexpectedly, if not improving as expected, or if other problems arise. SPECIFICALLY, return if you develop chest pain, fever, productive cough, difficulty breathing, excessive fatigue, a fluttering sensation in the chest, fainting or leg swelling. Your Current Medications: CONTINUE TAKING THE FOLLOWING MEDICATIONS: None*. Prescription Medications: Keflex 500 mg: take 1 capsule orally every 8 hours for 5 days. No refill. Substitution is permissible. (Disp 15 caps) Follow-up: Return to the emergency department as needed. Follow up with your doctor in three days. Reason for referral: recheck today's concerns. Summary of care provided to patient via paper. Screening today revealed the patient's blood pressure to be in the normal range. The patient should follow up with a primary care provider for blood pressure management. Understanding of the discharge instructions verbalized by patient. Follow-up with: Joe Ho MD, Obstetrics/Gynecology, , [facility], [address] [place] [address] Follow up in three days. 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 Summary of care provided to patient via paper. ADDITIONAL INFORMATION Dyspnea (Shortness Of Breath) Shortness of Breath (also known as "Dyspnea") is the sense that you can't catch your breath or can't get enough air. Dyspnea can be caused by many different conditions such as: Acute asthma attack Worsening of emphysema (also called "COPD") -- a lung diseasethat is caused by smoking A mucus plug blocks a large air passage in the lung -- this can occur with emphysema or chronic bronchitis Congestive Heart Failure ("CHF") -- when a weak heart muscle allows excess fluid to collect inthe lungs Panic attacks, anxiety -- fear can cause rapid breathing ("hyperventilation") Pneumonia -- infection in the lung tissue Exposure to toxic fumes or smoke Pulmonary embolus (blood clot to the lung) Based on your visit today, the exact cause of your shortness of breath is not certain. Your tests do not show any of the serious causes of dyspnea. Sometimes, further testing is needed to find out if a serious problem exists. Therefore, it is important for you to watch for any new symptoms or worsening of your condition and follow up with your doctor as directed. Home Care: When your symptoms are better, resume your usual activities. If you smoke, you need to stop. Join a stop-smoking program or ask your doctor for help. Follow Up with your doctor or as advised by our staff. Get Prompt Medical Attention if any of the following occur: Increasing shortness of breath or wheezing Redness, pain or swelling in one leg Swelling in both legs or ankles Unexpected weight gain Chest, arm, shoulder, neck or upper back pain Dizziness, weakness or fainting Palpitations (the sense that your heart is fluttering, beating fast or hard) Fever of 100.4F (38C) or higher, or as directed by your healthcare provider Cough with dark colored or bloody sputum (mucus) Bladder Infection,Female (Adult) A bladder infection ("cystitis" or "UTI") usually causes a constant urge to urinate and a burning when passing urine. Urine may be cloudy, smelly or dark. There may be pain in the lower abdomen. A bladder infection occurs when bacteria from the vaginal area enter the bladder opening (urethra). This can occur from sexual intercourse, wearing tight clothing, dehydration and other factors. Home Care: Drink lots of fluids (at least 6-8 glasses a day, unless you must restrict fluids for other medical reasons). This will force the medicine into your urinary system and flush the bacteria out of your body. Avoid sexual intercourse until your symptoms are gone. Avoid caffeine, alcohol and spicy foods. These can irritate the bladder. A bladder infection is treated with antibiotics. You may also be given Pyridium (generic = phenazopyridine) to reduce the burning sensation. This medicine will cause your urine to become a bright orange color. The orange urine may stain clothing. You may wear a pad or panty-liner to protect clothing. Preventing Future Infections: Always wipe from front to back after a bowel movement. Keep the genital area clean and dry. Drink plenty of fluids each day to avoid dehydration. Both sexual partners should wash before intercourse. Urinate right after intercourse to flush out the bladder. Wear cotton underwear and cotton-lined panty hose; avoid tight-fitting pants. If you are on control pills and are having frequent bladder infections, discuss with your doctor. Follow Up: Return to this facility or see your doctor if ALL symptoms are not gone after three days of treatment. Get Prompt Medical Attention if any of the following occur: Fever of 100.4F (38C) or higher, or as directed by your healthcare provider No improvement by the third day of treatment Increasing back or abdominal pain Repeated vomiting; unable to keep medicine down Weakness, dizziness or fainting Vaginal discharge Pain, redness or swelling in the labia (outer vaginal area) Cephalexin Monohydrate Oral tablet What is this medicine? CEPHALEXIN (sef a NICK in) is a cephalosporin antibiotic. It is used to treat certain kinds of bacterial infections It will not work for colds, flu, or other viral infections. How should I use this medicine? Take this medicine by mouth with a full glass of water. Follow the directions on the prescription label. This medicine can be taken with or without food. Take your medicine at regular intervals. Do not take your medicine more often than directed. Take all of your medicine as directed even if you think you are better. Do not skip doses or stop your medicine early. Talk to your sld inclusion teacher regarding the use of this medicine in children. While this drug may be prescribed for selected conditions, precautions do apply. What side effects may I notice from receiving this medicine? Side effects that you should report to your doctor or health healthcare network consultant as soon as possible: allergic reactions like skin rash, itching or hives, swelling of the face, lips, or tongue breathing problems pain or trouble passing urine redness, blistering, peeling or loosening of the skin, including inside the mouth severe or watery diarrhea unusually weak or tired yellowing of the eyes, skin Side effects that usually do not require medical attention (report to your doctor or health healthcare network consultant if they continue or are bothersome): gas or heartburn genital or anal irritation headache joint or muscle pain nausea, vomiting What may interact with this medicine? probenecid some other antibiotics What if I miss a dose? If you miss a dose, take it as soon as you can. If it is almost time for your next dose, take only that dose. Do not take double or extra doses. There should be at least 4 to 6 hours between doses. Where should I keep my medicine? Keep out of the reach of children. Store at room temperature between 59 and 86 degrees F (15 and 30 degrees C). Throw away any unused medicine after the expiration date. What should I tell my health care provider before I take this medicine? They need to know if you have any of these conditions: kidney disease stomach or intestine problems, especially colitis an unusual or allergic reaction to cephalexin, other cephalosporins, penicillins, other antibiotics, medicines, foods, dyes or preservatives or trying to get breast-feeding What should I watch for while using this medicine? Tell your doctor or health healthcare network consultant if your symptoms do not begin to improve in a few days. Do not treat diarrhea with over the counter products. Contact your doctor if you have diarrhea that lasts more than 2 days or if it is severe and watery. If you have diabetes, you may get a false-positive result for sugar in your urine. Check with your doctor or health healthcare network consultant. You have been given the following additional information: Dyspnea Bladder Infection, Female (Adult) Cephalexin Monohydrate Oral tablet (Electronically signed by Brayan Doe Dr. 08/09/2016 4:10)
--- NOTE | 2016-08-09 04:11 | ED MED RECONCILIATION SUMMARY ---
Patient: JOANNE DUTTA Medication Reconciliation Report [facility] VisitID: [id number] [address] [place] [address] 20y, F Registration Date/Time: 08/06/2016 Weight: 146.9 kg Height/Length: 68 in. BMI: 49.3 ALLERGIES: No Known Drug Allergy The patient's Home Medications are listed below: NONE. The source(s) of the original Home Medication information: patient The following Medications were given to the patient in the Emergency Department: None. The following Medications were prescribed to the patient: Keflex 500 mg: take 1 capsule orally every 8 hours for 5 days. No refill. Substitution is permissible.(Disp 15 caps) -- Brayan Doe Dr.
--- NOTE | 2016-08-09 04:11 | ED MAR SUMMARY ---
..... Medication Administration Record [facility] [address] [place] [place], [place] [id number] Patient: JOANNE DUTTA Visit ID: [id number] 20y, F Weight: 146.9 kg Height/Length: 68 in BMI: 49.3 ALLERGIES: No Known Drug Allergy
--- NOTE | 2016-08-09 04:11 | ED MAR SUMMARY ---
..... Medication Administration Record [facility] [address] [place] [place], [place] [id number] Patient: JOANNE DUTTA Visit ID: [id number] 20y, F Weight: 146.9 kg Height/Length: 68 in BMI: 49.3 ALLERGIES: No Known Drug Allergy
--- NOTE | 2016-08-09 04:11 | ED MED RECONCILIATION SUMMARY ---
Patient: JOANNE DUTTA Medication Reconciliation Report [facility] VisitID: [id number] [address] [place] [address] 20y, F Registration Date/Time: 08/06/2016 Weight: 146.9 kg Height/Length: 68 in. BMI: 49.3 ALLERGIES: No Known Drug Allergy The patient's Home Medications are listed below: NONE. The source(s) of the original Home Medication information: patient The following Medications were given to the patient in the Emergency Department: None. The following Medications were prescribed to the patient: Keflex 500 mg: take 1 capsule orally every 8 hours for 5 days. No refill. Substitution is permissible.(Disp 15 caps) -- Brayan Doe Dr.
--- NOTE | 2016-08-09 11:25 | DIAGNOSTIC IMAGING REPORT ---
PROCEDURE: US 2ND TRIMESTER INDICATION: Cramping. Spotting. Check well being. TECHNIQUE: Woods scale, color, and spectral Doppler transabdominal and endovaginal sonographic images of the first trimester gravid uterus were obtained. COMPARISON: None. FINDINGS: TRANSABDOMINAL SCANS: There is an early intrauterine . TRANSVAGINAL SCANS: There is an early viable intrauterine with cardiac activity (148). Placenta is anterior, low-lying, with previa. No evidence of abruption. Normal fluid and cervix length (4.6 cm). Measurements an anatomic survey were not obtained (as requested). IMPRESSION: 1. Early viable intrauterine . 2. Anterior low-lying placenta with previa, most likely reflection of early gestational age, and will most likely "migrate" later in . No evidence of abruption.
== END 2016-08-07 02:38 | disposition home or self-care (01) ==
LOC: ED SRH 21:32
DX: O23.42 Unspecified infection of urinary tract in pregnancy, second trimester (principal); O44.02 Complete placenta previa NOS or without hemorrhage, second trimester; R06.00 Dyspnea, unspecified; Z3A.18 18 weeks gestation of pregnancy
CPT/HCPCS: 90004; 90100; 90197; 90616; 95059

== ENCOUNTER 2016-09-16 20:19 | Outpatient (CLI) | payer OTHER ==
--- NOTE | 2016-09-20 10:57 | DIAGNOSTIC IMAGING REPORT ---
PROCEDURE: US OB LIMITED INDICATION: HASNT FELT BABY MOVE IN 4 DAYS. UNABLE TO DOPPLER TECHNIQUE: Woods scale and color Doppler sonographic images obtained of the gravid uterus. COMPARISON: OB ultrasound 08/06/2016. FINDINGS: Single intrauterine with vertex presentation, anterior placenta without previa and heart rate 143 bpm. Normal closed cervix, 5 cm. IMPRESSION: 1. Single live intrauterine .
== END 2016-09-16 23:00 | disposition left against medical advice (07) ==
LOC: OBC SRH 20:19 → OB SRH 20:20 → OBC SRH 23:00
DX: O36.8120 Decreased fetal movements, second trimester, not applicable or unspecified (principal); Z3A.23 23 weeks gestation of pregnancy